=== PATIENT | female | born 1940 | race Caucasian/White ===

== ENCOUNTER 2022-01-26 10:17 | Inpatient (IN) | payer OTHER ==
[~2022-01-26] VITALS: Ht 160 cm; Wt 72.6 kg
[~2022-01-26 10:17] MED LIST: AMA2 PO; AMLO1TAB15 PO; CHLO25TA27 PO; CLOP-31 PO; KOMBIGLYZE PO; LOSA1TAB9 PO; PROT40 PO; ROSU40TA PO; SITA1TAB8 PO
[2022-01-26] MEDS ORDERED: PIPERACILLIN/TAZ 3.375G PREMIX 50 ML IV ONE (10:45)
[2022-01-26] MEDS ORDERED: SODIUM CHLORIDE 0.9% 1000ML BAG (SEPSIS BOLUS) IV ONE (10:45)
[2022-01-26] MEDS ORDERED: VANCOMYCIN 1G PREMIX 200 ML IV ONE (10:45)
[2022-01-26 13:11] LABS: HEMATOCRIT. 36.8 % (36.0-48.0); HEMOGLOBIN. 12.3 g/dL (12.0-16.0); MEAN CORPUSCULAR HEMOGLOBIN 30.4 pg (28.0-32.0); MEAN CORPUSCULAR VOLUME 90.9 fL (81.0-99.0); MEAN PLATELET VOLUME 8.2 fl (7.4-10.4); PLATELET 125 x1000/uL (130-400); RED BLOOD CELL COUNT 4.05 mill/uL (4.2-5.4); RED CELL DISTRIBUTION WIDTH 16.2 % (11.6-14.6)
[2022-01-26] MEDS ORDERED: NOREPINEPHRINE 8MG/250ML PMX 250 ML IV STA (13:11)
[2022-01-26] MEDS ORDERED: PIPERACILLIN/TAZ 3.375G PREMIX 50 ML IV NR (13:15)
[2022-01-26 13:17] LABS: INR 1.1; PROTHROMBIN TIME 11.7 sec (9.6-11.0)
[2022-01-26 13:25] LABS: CHLORIDE 100 mEq/L (98-107)
[2022-01-26 14:48] LABS: CLARITY URINE CLOUDY (CLEAR); COLOR URINE DARK YELLOW (YELLOW); KETONES URINE TRACE (NEGATIVE); LEUKOCYTE ESTERASE URINE 2+ (NEGATIVE); NITRITE URINE NEGATIVE (NEGATIVE); OCCULT BLOOD URINE TRACE (NEGATIVE); PROTEIN URINE 1+ (NEGATIVE); SPECIFIC GRAVITY URINE 1.021 (1.005-1.030)
[2022-01-26 15:02] LABS: PLATELET ESTIMATE SLIGHTLY DECREASED
[2022-01-26] MEDS ORDERED: DIPHENHYDRAMINE 50MG/ML VIAL IV PRN (15:45)
[2022-01-26] MEDS ORDERED: ONDANSETRON HCL 4MG/2ML INJ IV PRN (15:45)
[2022-01-26] MEDS ORDERED: IPRATROPIUM/ALBUTEROL 0.5-3(2.5)MG/3ML NEB HHN PRN (15:45)
[2022-01-26] MEDS ORDERED: CLONIDINE 0.1MG TABLET PO PRN (15:45)
[2022-01-26] MEDS: SODIUM CHLORIDE 0.9% 1,000 ML IV SCH (15:45)
[2022-01-26] MEDS ORDERED: NOREPINEPHRINE 8MG/250ML PMX 250 ML IV PRN (16:45)
[2022-01-26] MEDS: BLOOD SUGAR DIAGNOSTIC STRIP TEST SCH ×2 (17:30→21:00)
[2022-01-26] MEDS ORDERED: DEXTROSE 50% WATER 50ML SYRINGE IV PRN (17:30)
[2022-01-26] MEDS: INSULIN LISPRO 100 UNITS/ML SUBCUT SCH ×2 (18:59→21:00)
[2022-01-26] MEDS ORDERED: PIPERACILLIN/TAZOBACTAM 3.375 G in DEXTROSE 5% WATER 50 ML IV SCH (22:00)
[2022-01-27] VITALS (62 sets, daily range): BP systolic 65–182; BP diastolic 17–117
[2022-01-27 04:58] LABS: HEMOGLOBIN. 12.9 g/dL (12.0-16.0); MEAN CORPUSCULAR HEMOGLOBIN 30.4 pg (28.0-32.0); MEAN CORPUSCULAR VOLUME 91.8 fL (81.0-99.0); MEAN PLATELET VOLUME 7.9 fl (7.4-10.4); PLATELET 133 x1000/uL (130-400); RED BLOOD CELL COUNT 4.24 mill/uL (4.2-5.4); RED CELL DISTRIBUTION WIDTH 16.1 % (11.6-14.6)
[2022-01-27 05:04] LABS: CHLORIDE 104 mEq/L (98-107)
[2022-01-27] MEDS: SODIUM CHLORIDE 0.9% 1,000 ML IV SCH ×2 (05:05→10:27)
[2022-01-27] MEDS ORDERED: PIPERACILLIN/TAZ 3.375G PREMIX 50 ML IV SCH ×2 (07:00→14:00)
[2022-01-27 07:42] LABS: PLATELET ESTIMATE NORMAL
[2022-01-27] MEDS: BLOOD SUGAR DIAGNOSTIC STRIP TEST SCH ×4 (08:45→20:49)
[2022-01-27] MEDS: INSULIN LISPRO 100 UNITS/ML SUBCUT SCH ×4 (09:02→21:01)
[2022-01-27] MEDS ORDERED: NOREPINEPHRINE 8 MG in DEXT 5% WATER 242 ML IV PRN (13:00)
[2022-01-27] MEDS: PIPERACILLIN/TAZOBACTAM 3.375G in DEXT 5% WATER 50ML IV SCH ×2 (13:05→21:01)
[2022-01-27] MEDS ORDERED: VANCOMYCIN 750MG PREMIX 150 ML IV SCH ×2 (16:00)
[2022-01-28] VITALS (63 sets, daily range): BP systolic 84–158; BP diastolic 39–98
[2022-01-28 05:30] LABS: HEMATOCRIT. 34.1 % (36.0-48.0); HEMOGLOBIN. 11.5 g/dL (12.0-16.0); MEAN CORPUSCULAR HEMOGLOBIN 30.8 pg (28.0-32.0); MEAN CORPUSCULAR VOLUME 91.1 fL (81.0-99.0); MEAN PLATELET VOLUME 7.5 fl (7.4-10.4); PLATELET 96 x1000/uL (130-400); RED BLOOD CELL COUNT 3.74 mill/uL (4.2-5.4); RED CELL DISTRIBUTION WIDTH 16.2 % (11.6-14.6)
[2022-01-28 05:36] LABS: CHLORIDE 102 mEq/L (98-107)
[2022-01-28] MEDS: PIPERACILLIN/TAZOBACTAM 3.375G in DEXT 5% WATER 50ML IV SCH ×3 (05:47→21:17)
[2022-01-28] MEDS: SODIUM CHLORIDE 0.9% 1,000 ML IV SCH ×2 (05:48→21:18)
[2022-01-28] MEDS: BLOOD SUGAR DIAGNOSTIC STRIP TEST SCH ×4 (07:55→21:18)
[2022-01-28] MEDS: ACETAMINOPHEN 325MG TABLET PO PRN ×2 (07:55→20:23)
[2022-01-28] MEDS: INSULIN LISPRO 100 UNITS/ML SUBCUT SCH ×4 (07:56→21:19)
[2022-01-28] MEDS ORDERED: POTASSIUM CHLORIDE 20MEQ TABLET SR PO SCH (11:00)
[2022-01-28 11:56] LABS: NUCLEATED RED BLOOD CELLS 1 /100 WBC; PLATELET ESTIMATE SLIGHTLY DECREASED
[2022-01-28] MEDS: CEFAZOLIN 2,000 MG in DEXT 5% WATER 100 ML IV SCH (22:39)
[2022-01-29] VITALS (64 sets, daily range): BP systolic 76–171; BP diastolic 19–85
[2022-01-29 05:38] LABS: HEMATOCRIT. 33.8 % (36.0-48.0); HEMOGLOBIN. 11.5 g/dL (12.0-16.0); MEAN CORPUSCULAR HEMOGLOBIN 30.6 pg (28.0-32.0); MEAN CORPUSCULAR VOLUME 90.6 fL (81.0-99.0); MEAN PLATELET VOLUME 7.8 fl (7.4-10.4); PLATELET 99 x1000/uL (130-400); RED BLOOD CELL COUNT 3.74 mill/uL (4.2-5.4); RED CELL DISTRIBUTION WIDTH 15.6 % (11.6-14.6)
[2022-01-29] MEDS: CEFAZOLIN 2,000 MG in DEXT 5% WATER 100 ML IV SCH ×2 (05:41→14:46)
[2022-01-29 06:57] LABS: CHLORIDE 109 mEq/L (98-107)
[2022-01-29] MEDS: BLOOD SUGAR DIAGNOSTIC STRIP TEST SCH ×2 (08:25→12:38)
[2022-01-29] MEDS: INSULIN LISPRO 100 UNITS/ML SUBCUT SCH ×2 (08:29→12:43)
[2022-01-29] MEDS ORDERED: NALOXONE HCL 0.4MG/ML VIAL IV PRN (08:45)
[2022-01-29] MEDS ORDERED: HYDROCODONE/ACETAMINOPHEN 5/325MG TABLET PO PRN (08:45)
[2022-01-29] MEDS: SODIUM CHLORIDE 0.9% 1,000 ML IV SCH (09:32)
[2022-01-29] MEDS ORDERED: LEVO-65 MT (13:17)
[2022-01-29] MEDS ORDERED: TOPUD MT (13:19)
[2022-01-29] MEDS ORDERED: HYDR-4001 MT (13:19)
[2022-01-29] MEDS ORDERED: BISACODYL 10MG SUPP PR NR (14:30)
[2022-01-30 09:34] LABS: PLATELET ESTIMATE DECREASED
== END 2022-01-29 16:10 | disposition home or self-care (01) | DRG 720 ==
LOC: ER 10:51 → EDBEDREQ 14:31 → EDBEDREQSVC 14:34 → EDBEDREQ 14:34 → EDBEDREQTM 14:34 → ENRESERV 01-27 07:43 → MICUNO 01-27 09:21 → CVICU 01-27 21:35
PROVIDERS: ADMIT Internal Medicine; ATTEND Internal Medicine
DX: A41.51 Sepsis due to Escherichia coli [E. coli] (principal); R65.21 Severe sepsis with septic shock; E44.1 Mild protein-calorie malnutrition; N17.9 Acute kidney failure, unspecified; E88.09 Other disorders of plasma-protein metabolism, not elsewhere classified; E11.9 Type 2 diabetes mellitus without complications; E78.00 Pure hypercholesterolemia, unspecified; E78.5 Hyperlipidemia, unspecified; I10 Essential (primary) hypertension; N39.0 Urinary tract infection, site not specified; Z68.30 Body mass index [BMI] 30.0-30.9, adult; Z79.899 Other long term (current) drug therapy; Z79.4 Long term (current) use of insulin; Z79.84 Long term (current) use of oral hypoglycemic drugs
CPT/HCPCS: 36415; 71045; 72170; 80048; 80053; 81003; 82962; 83036; 83605; 84145; 85025; 87077; 87186; 87426; 93005; 93970; 97162; 99291; C9803; J0690; J1815; J2405; J2543; J3370; J3490; J7030; J7060; A4315